=== PATIENT | male | born 1965 | race Caucasian/White ===

== ENCOUNTER 2017-02-05 09:23 | Day surgery (SDC) | payer MEDICAID ==
[2017-02-05] MEDS ORDERED: D5 LR 1000 ML 1,000 ML IV ONE (09:59)
[2017-02-05] MEDS ORDERED: DIPRIVAN VIAL 20 ML ONE (10:57)
[2017-02-05 14:54] VITALS: BP 115/68
== END 2017-02-05 11:30 | disposition home or self-care (01) ==
LOC: SURG1 09:23
PROVIDERS: ATTEND Internal Medicine Gastroenterology
PROC: 0DJ08ZZ Inspection of Upper Intestinal Tract, Via Natural or Artificial Opening Endoscopic (ICD-10-PCS; principal; 2017-02-05 12:00)
PROC: 0D757ZZ Dilation of Esophagus, Via Natural or Artificial Opening (ICD-10-PCS; principal; 2017-02-05 12:00)
PROC: 0DB68ZX Excision of Stomach, Via Natural or Artificial Opening Endoscopic, Diagnostic (ICD-10-PCS; principal; 2017-02-05 12:00)
PROC: 0DB88ZX Excision of Small Intestine, Via Natural or Artificial Opening Endoscopic, Diagnostic (ICD-10-PCS; principal; 2017-02-05 12:00)
DX: R13.19 Other dysphagia (principal); R10.13 Epigastric pain; K21.9 Gastro-esophageal reflux disease without esophagitis; K20.8 Other esophagitis; K22.4 Dyskinesia of esophagus; K22.2 Esophageal obstruction; K29.60 Other gastritis without bleeding; K25.9 Gastric ulcer, unspecified as acute or chronic, without hemorrhage or perforation
CPT/HCPCS: A4217; J3490; J7120

== ENCOUNTER 2017-02-12 10:23 | Day surgery (SDC) | payer MEDICAID ==
[2017-02-12] MEDS ORDERED: D5 LR 1000 ML 1,000 ML IV ONE (10:32)
[2017-02-12] MEDS ORDERED: DIPRIVAN VIAL 10 ML ONE ×3 (12:12→12:29)
[2017-02-12 13:02] VITALS: BP 112/71
== END 2017-02-12 13:04 | disposition home or self-care (01) ==
LOC: SURG1 10:23
PROVIDERS: ATTEND Internal Medicine Gastroenterology
PROC: 0DBH8ZX Excision of Cecum, Via Natural or Artificial Opening Endoscopic, Diagnostic (ICD-10-PCS; principal; 2017-02-12 12:30)
PROC: 0DJD8ZZ Inspection of Lower Intestinal Tract, Via Natural or Artificial Opening Endoscopic (ICD-10-PCS; principal; 2017-02-12 12:30)
PROC: 0DBM8ZX Excision of Descending Colon, Via Natural or Artificial Opening Endoscopic, Diagnostic (ICD-10-PCS; principal; 2017-02-12 12:30)
PROC: 0DBN8ZX Excision of Sigmoid Colon, Via Natural or Artificial Opening Endoscopic, Diagnostic (ICD-10-PCS; principal; 2017-02-12 12:30)
DX: Z12.11 Encounter for screening for malignant neoplasm of colon (principal); K63.5 Polyp of colon; K57.30 Diverticulosis of large intestine without perforation or abscess without bleeding; K64.0 First degree hemorrhoids; D12.4 Benign neoplasm of descending colon; D12.5 Benign neoplasm of sigmoid colon
CPT/HCPCS: A4217; J3490; J7120

== ENCOUNTER → 2017-04-01 | Outpatient (CLI) | payer MEDICAID ==
[~2017-04-01] MED LIST: FENTANYL INJ 100 mcg ONE; NS 500 ML IV 0 ML IV ONE; NS 500 ML IV 500 ML IV ONE; VERSED ONE; XYLOCAINE 1 % (PLAIN) ONE
[2017-04-01 10:09] LABS: BASOPHILS % (AUTO) 0.8 % (0.2-1.0); EOSINOPHILS # (AUTO) 0.3 x10^3/uL (0.0-0.2); EOSINOPHILS % (AUTO) 4.9 % (0.9-2.9); HEMATOCRIT 43.3 % (42.0-54.0); HEMOGLOBIN 14.4 g/dL (13.5-18.0); LYMPHOCYTES # (AUTO) 1.3 X10^3/uL (1.3-2.9); LYMPHOCYTES % (AUTO) 23.8 % (21.0-51.0); MEAN CORPUSCULAR HEMOGLOBIN 29.8 pg (27.0-34.0); MEAN CORPUSCULAR HGB CONC 33.3 g/dL (33.0-35.0); MEAN CORPUSCULAR VOLUME 89.3 fL (80.0-100.0); MONOCYTES # (AUTO) 0.7 x10^3/uL (0.3-0.8); NEUTROPHILS # (AUTO) 3.2 x10^3/uL (2.2-4.8); NEUTROPHILS % (AUTO) 58.5 % (42.0-75.0); PLATELET COUNT 198 X10^3/uL (150.0-450.0); RED BLOOD COUNT 4.85 X10^6/uL (4.7-6.0); RED CELL DISTRIBUTION WIDTH 16.9 % (11.6-16.5); WHITE BLOOD COUNT 5.5 X10^3/uL (3.6-10.0)
[2017-04-01 10:19] LABS: ALANINE AMINOTRANSFERASE 33 Units/L (12-78); ALBUMIN 3.5 g/dL (3.4-5.0); ALKALINE PHOSPHATASE 62 Units/L (46-116); ASPARTATE AMINO TRANSFERASE 27 Units/L (15-37); BLOOD UREA NITROGEN 21 mg/dL (7-18); CALCIUM 8.5 mg/dL (8.5-10.1); CARBON DIOXIDE 34.5 mmol/L (21-32); CHLORIDE 104 mmol/L (98-107); GLUCOSE 101 mg/dL (65-99); SODIUM 143 mmol/L (136-145); TOTAL PROTEIN 7.1 g/dL (6.4-8.2); eGFR BLACK RACES > 60 (>60); eGFR NON BLACK RACES > 60 (>60)
--- NOTE | 2017-04-06 06:52 | CT ---
CT-guided liver biopsy Indication: Chronic viral hepatitis-C Technique/findings: After the procedure was explained to the patient and all questions were answered the patient gave written informed consent for liver biopsy. Patient was then placed in the supine p osition with localizing grid placed in the right upper quadrant. After localizing the place for live r biopsy was determined the patient was prepped and draped in usual sterile fashion. The nurse anest hetist was present for entire procedure giving both IV Fentanyl and Versed for moderate sedation . P lease see separate note for further description of IV pain medication. Patient was also given local 1% lidocaine in expected site of needle biopsy. Under CT guidance a 19 gauge trocar was advanced int o the right hepatic lobe. After confirmation of placement of the trocar a 20 gauge, 5 cm biopsy need le was placed through the trocar with subsequent biopsy performed. This was repeated three additiona l times for a total 4 core biopsy specimens obtained. The specimens were immediately placed in forma emery. There were no procedural or immediate postprocedural complication identified . The patient tole rated the procedure well with minimal blood loss. Minimal amount of scarring within the left lung base. No focal hepatic lesion identified given the l imitations of a noncontrast examination. Overall the liver does not have a grossly cirrhotic morphol ogy. Prior cholecystectomy is noted. Impression: 1.Successful non targeted liver biopsy with 4 core specimens obtained and placed in formalin and sen t to pathology for further evaluation . No procedural or immediate postprocedural complication. The patient is to followup with Dr. Lopez for results and further management. Reported By:
== END | disposition home or self-care (01) | DRG 443 ==
LOC: RAD 09:42
PROVIDERS: ATTEND Internal Medicine Gastroenterology
PROC: 0FB13ZX Excision of Right Lobe Liver, Percutaneous Approach, Diagnostic (ICD-10-PCS; principal; 2017-04-01)
DX: B18.2 Chronic viral hepatitis C (principal)
CPT/HCPCS: 36415; 77012; 80053; 85025; 85610; 85730; A4222; J2001; J2250; J3010

== ENCOUNTER 2017-06-16 09:01 | Emergency (ER) | payer MEDICAID ==
[2017-06-16 09:20] VITALS: BMI 27.3
--- NOTE | 2017-06-16 09:24 | DR.CA ---
HPI - Time Seen Time seen: 09:03 - Complaint Chief Complaint Doctor Comments: [facility] called stating that patient had chest pain and had fallen off the comode (742). At 754 received another call stating that patient was on the floor and not breathing. Upon arrival of EMS, patient was cyanotic (face and chest) ACLS was iniated, patient intubated received epinephrine and one amp of bicarbonate. He never did have sponstaneous pulse or respiration. Upon arrival to [facility] ER he was blue ACLS continued, eyes were fixed and dilated CR monitor revealed asytole throughout ACLS. He was pronounced deat at 0911. PMH - PMH Past Medical History: Cirrhosis, CHF, Coronary Artery Disease, GERD, Hypertension Past Surgical History: Yes Surgical History: Abdominal Surgery (Umbilical Hernia Repair), Appendectomy, Cholecystectomy - Family History Family Medical History: [place] - Social History Do you use any recreational Drugs:: No PE - Vitals Vital Signs: Temp BP BP BP Pulse Ox 06/16/17 09:11 0 F L 100/50 0 L 02/12/17 13:00 112/71 10/14/15 12:00 120/82 10/13/15 04:00 135/97 - Diagnosis Discharge Problem: Cardiac arrest Cardiomyopathy Qualifiers: Cardiomyopathy type: unspecified Qualified Code(s): I42.9 - Cardiomyopathy, unspecified - Discharge Plan Condition: Stable - Follow ups/Referrals Follow ups/Referrals: Ashkan Aguila [Primary Care Provider] - 3 days - Instructions
[2017-06-16] MEDS ORDERED: ADRENALINE CHL INJ (ABBOJECT) IVP ONE ×2 (09:25→09:26)
[2017-06-16 09:30] VITALS: BP 0/0
== END 2017-06-16 11:45 | disposition home or self-care (01) ==
LOC: ER 09:01
PROC: 5A12012 Performance of Cardiac Output, Single, Manual (ICD-10-PCS; principal; 2017-06-16)
DX: I46.9 Cardiac arrest, cause unspecified (principal); I42.9 Cardiomyopathy, unspecified
CPT/HCPCS: 92950; 93041; 96365; 96374; 96375; 99285; J0170